=== PATIENT | female | born 2000 | race Caucasian/White ===

== ENCOUNTER → 2021-10-07 | Outpatient (REF) | payer OTHER ==
[2021-10-07 14:51] LABS: URINE PREG TEST NEGATIVE (NEGATIVE)
[2021-10-07 16:52] LABS: GC DNA AMPLIFICATION NEGATIVE (NEGATIVE)
== END ==
LOC: M LAB REF 14:21
PROVIDERS: ATTEND Obstetrics & Gynecology Obstetrics
DX: Z11.3 Encounter for screening for infections with a predominantly sexual mode of transmission (principal)

== ENCOUNTER 2023-01-09 11:41 | Emergency (ER) | payer OTHER ==
[~2023-01-09] VITALS: Ht 162.6 cm; Wt 45.5 kg
[2023-01-09] MEDS ORDERED: AMOX875T2 (12:48)
[2023-01-09] MEDS ORDERED: JOLETAB (12:48)
[2023-01-09] MEDS ORDERED: AMPICILLIN SOD/SULBACTAM SOD 3 GM in D5W MINI-BAG PLUS 100 ML IV ONE (13:40)
[2023-01-09] MEDS ORDERED: dexAMETHasone 20MG/5ML VIAL IV ONE (13:40)
[2023-01-09] MEDS ORDERED: KETOROLAC 30 MG/ML 1ML VIAL IV ONE (13:40)
[2023-01-09] MEDS ORDERED: NS 1,000 ML IV ONE (13:40)
[2023-01-09 13:59] LABS: BASO % 0.3 % (0.0-1.0); EOS % 0.3 % (0.0-3.0); HEMATOCRIT 37.2 % (36.0-47.0); HEMOGLOBIN 12.4 g/dl (12.0-15.5); LYMPH # 1.2 10^3/uL (1.5-5.0); LYMPH % 17.2 % (24.0-44.0); MEAN CORPUSCULAR HEMOGLOBIN 30.8 pg (27.0-33.0); MEAN CORPUSCULAR HGB CONC 33.3 g/dl (32.0-36.5); MEAN CORPUSCULAR VOLUME 92.3 fl (80.0-96.0); MONO # 0.3 10^3/uL (0.0-0.8); MONO % 4.2 % (2.0-8.0); NEUTROPHILS # 5.4 10^3/uL (1.5-8.5); NEUTROPHILS % 77.7 % (36.0-66.0); PLATELET COUNT, AUTOMATED 198 10^3/uL (150-450); RED BLOOD COUNT 4.03 10^6/uL (4.00-5.40); WHITE BLOOD COUNT 6.9 10^3/uL (4.0-10.0)
[2023-01-09] MEDS ORDERED: ISOVUE-370 76% 100ML VIAL As Ordered ONE (14:29)
[2023-01-09 14:31] LABS: ERYTHROCYTE SEDIMENTATION RATE 14 mm/hr (0-20)
[2023-01-09] MEDS ORDERED: BENZOCAINE 20% GEL 9GM TUBE (ANBESOL MAX STRENGTH) TOP ONE (16:30)
[2023-01-09] MEDS ORDERED: ARTICAINE HCL/EPINEPHRINE 4%-1:200,000 1.7ML INJ (SEPTOCAINE) SM ONE (16:30)
[2023-01-09 17:08] VITALS: BP 127/75; TEMP 99; O2SAT 100
== END 2023-01-09 17:14 | disposition home or self-care (01) ==
LOC: M ED 11:41
DX: K04.7 Periapical abscess without sinus (principal); Z79.3 Long term (current) use of hormonal contraceptives
CPT/HCPCS: 64400; 70487; 80047; 84702; 85025; 85652; 86140; 96365; 96375; 99283; J0295; J1100; J1885; Q9967